=== PATIENT | male | born 1940 | race Caucasian/White ===

== ENCOUNTER → 2016-03-05 | Outpatient (CLI) | payer OTHER, BC ==
[~2016-03-05] MED LIST: ATV/1 PO; CHOL100010 PO; LISI-461 PO; LUPRON INH; MELO7.5T5 PO; MULT-506 PO; OXYC-57 PO; PRT/40 PO; PSYL1POW4 PO; TAMS0.4C38 PO; TRAZ50TA35 PO
[2016-03-05 10:22] VITALS: BP 127/79; PULSE 72; TEMP 36.9; O2SAT 96
--- NOTE | 2016-03-05 12:03 | Radiation Oncology Follow-Up ---
Radiation Oncology Follow-Up Date of Visit Mar 05, 2016. Reason For Visit One-month follow-up and cancer survivorship care plan Radiation Completion Date Hormonal suppression;Seed implant 11/04/15;IMRT 02/02/16 Diagnosis (1) Prostate cancer Status: Acute Onset Date: 04/08/2015 Location: both lobes of the prostate Histology Subtype: adenocarcinoma Stage: ll (biopsy stage) Permanent Comment: Rising PSA, pretreatment PSA 4.580 Status post ultrasound-guided biopsies 04/08/2015 [place] 3+3 and 4+4 Biopsy stage T2c Prostate volume 65.42 Prostate density 0.07 Lupron 30 mg IM 05/15/2015 Lupron 30 mg IM 09/09/2015 Status post prostate seed implant 11/04/2015 46 seeds were placed dose to 8500 cGy Lupron 30 mg IM 01/06/2016 (last) Status post completion of IMRT 02/02/2016 received 4500 cGy Last Edited By: Makenzie Sumner on Mar 05, 2016 12:02 History of Present Illness Mr. Rodriguez is a 75-year-old male with a strong family history of prostate cancer. Patient's paternal grandfather was diagnosed with prostate cancer at an advanced age and at age 94 of old age. The patient's father was diagnosed with prostate cancer at age 70 and at age 79 from his lung cancer. Patient 's paternal cousin was diagnosed with prostate cancer treated with prostate seed implant and is alive and well at age 79. The patient has 3 sons age 50, 52 and 54 square are obviously increased risk for prostate cancer. The patient has been followed with annual screening prostate-specific antigens. On 2012 prostate-specific antigen was 3.40. On 01/24/2014 prostate-specific antigen was 2.85. On 03/11/2015 to prostate-specific antigen had increased to 4.58. Because of this increase in prostate-specific antigen the patient was sent for evaluation to Dr. Alexx Red on 03/17/2015.. His digital rectal exam revealed estimated prostate volume of 50 g but no palpable nodules or induration. He discussed with the patient the option of prostate biopsy and the patient agreed to proceed with this procedure. On 04/08/2015 Dr. Red performed ultrasound-guided biopsies. This included 2 biopsies each from the left and right base, left and right mid gland, left and right apex. One biopsy was taken from the left and right anterior gland. Therefore total of 14 samples were taken. The 2 biopsies from the left base were benign. 2 of 2 biopsies from the right base were positive for adenocarcinoma poorly differentiated, [place] grade 4+4 with foci of intraductal carcinoma. This tumor involved 70% and 95% of the core length respectively. Perineural invasion was identified but no lymphovascular invasion noted. One of 2 biopsies in the left mid gland were positive for adenocarcinoma moderately differentiated, [place] grade 3+3 involving 15% of the core length with no perineural or lymphovascular invasion. 2 of 2 biopsies from the right mid gland were positive for prostatic adenocarcinoma, poorly differentiated, [place] grade 4+4 with foci of intraductal carcinoma. The tumor involved 75% of each core length with no perineural or lymphovascular invasion identified. 2 of 2 biopsies in the left apex were positive for adenocarcinoma, moderately differentiated, [place] grade 3+3 involving 15% of the core lengths with no perineural or lymphovascular invasion identified. 22 biopsies from the right apex were positive for prostatic adenocarcinoma, poorly differentiated, [place] grade 4+4 with foci of intraductal carcinoma. The tumor involved 30% with core length with no perineural or lymphovascular invasion identified. The single biopsy of the left anterior gland was benign. The single biopsy from the right anterior gland was positive for prostatic adenocarcinoma, moderately differentiated, [place] grade 3+3 involving 5% of the core length with perineural invasion identified but no lymphovascular invasion noted. Therefore a total of 10 out of 14 biopsies were positive. 7 right gland and 3 from the left gland. 6 of the biopsies and [place] grade 4+4 and 4 the biopsies had [place] grade 3+3. Case: [id number]. The patient return to discuss these findings with Dr. Red on 04/22/2015. He discussed treatment options with this patient. He arranged for a staging CT scan and bone scan for 05/01/2015 with results pending. We were also asked to see the patient in referral for discussion of the role of radiation. All options of therapy were reviewed with the patient. Ultimate decision was to be treated with hormone suppression followed by a prostate seed implant and then IMRT. He prostate seed implant was performed 11/04/2015. 46 his were placed. His dose was 8500 cGy. He then underwent IMRT. This was completed . He received 4500 cGy. Interim History He has had steady improvement in his urinary symptoms over the past month. His AUA score today was 11. The score at the end of treatment was 17. He had been started on tamsulosin and that was increased to twice a day. He did not feel that taking this twice a day made a difference so he been back to 1 pill per day. He's been taking 1 pill daily. He does have a change in bowel habits since undergoing the prostate biopsy. He feels that the stool is smaller in caliber. He has a pressure feeling. He denies pain. There is been no rectal bleeding. He has no abdominal pain. He had his last Lupron injection 2015. Continues to have some hot flashes. He completed expanded prostate cancer index composite for clinical practice and gave a score of 0 of 12 urinary incontinence symptoms. He gave a score of 6 of 12 urinary irritation symptoms. He gave a score of 4 of 12 in bowel symptoms. He gave a score of 8 of 12 and sexual symptoms he gave a score of 3 of 12 and hormonal vitality symptoms. His total was 21 of 60. He currently does not have a follow-up appointment with Dr. Eduardo. Allergies Coded Allergies: Penicillins (Verified Allergy, Unknown, HIVES, FEET HURTS, 11/04/15) Onion (Verified Adverse Reaction, Unknown, INDIGESTION, 11/04/15) Home Medications Scheduled Cholecalciferol (Vitamin D), 2,000 INTER.UNIT PO QAM Lisinopril (Zestril), 10 MG PO QAM Meloxicam (Mobic), 7.5 MG PO QAM Multivitamin (Multivitamin), 1 TAB PO QAM Pantoprazole (Pantoprazole Sodium), 1 TAB PO DAILY Psyllium (Metamucil), 1 TBS PO DAILY Tamsulosin Hcl (Flomax), 0.4 MG PO QPM [Lupron], 1 DOSE INH [id number] Scheduled PRN Lorazepam (Ativan), 1 MG PO HS PRN for Sleep Oxycodone/Acetaminophen 5MG/325MG (Percocet 5MG/325MG), 1-2 TABLETS PO Q4H PRN for Pain Review of Systems Gastrointestinal: Symptoms: WNL GI Comments: Takes metamucil;3 BMs/day of smaller amounts since RT; Oral: Symptoms: No Problems Respiratory: Symptoms: WNL Urinary: Symptoms: Burning, Frequency Comments: Little to no burning in penis w/urination - improved; Skin: Symptoms: No Problems Physical Exam Vital Signs Date Time Temp Pulse Resp B/P Pulse Ox O2 Delivery O2 Flow Rate FiO2 03/05/16 10:22 36.9 72 12 127/79 96 Fatigue: None General Appearance: no apparent distress Eyes: normal inspection, EOMI ENT: normal ENT inspection, hearing grossly normal Respiratory/Chest: lungs clear, no respiratory distress, no accessory muscle use Cardiovascular: regular rate, rhythm, no gallop, no murmur Abdomen: non tender, soft Anal / Rectum: Normal sphincter tone. Prostate is centrally raised. There are no masses or tenderness. There is no rectal bleeding. Extremities: no pedal edema Neurologic/Psychiatric: no motor/sensory deficits, alert, normal mood/affect Skin: warm/dry Lymphatic: no adenopathy Laboratory Studies Test 12/16/15 08:55 03/05/16 11:06 Blood Urea Nitrogen 14 mg/dl (7-18) Creatinine 0.87 mg/dl (0.60-1.40) Estimated GFR () 96.5 Estimated GFR (Non- 83.2 BUN/Creatinine Ratio 16.3 (10-20) Assessment & Plan Plan: He is currently taking tamsulosin once daily. He had previously felt that twice a day did not make a difference. He would like to try again to see if this helps his urinary symptoms. He is going to take this twice a day as a trial for one week. If there is no difference in his urination he'll go back to once per day. We discussed the change in bowel habits. We reviewed that is likely due to the swelling that occurred beginning at the time of the biopsy and persisted throughout the radiation treatments. It is hoped this will steadily improve over time. If it continues to persist he'll need to be evaluated. I've asked him to see Dr. Eduardo in 3 months. The PSA was drawn today prior to examination. He'll be notified as to results. We asked him to return to our office in 6 months. Today we completed a cancer survivorship care plan. A copy the document was given to the patient. He was given a survivorship booklet. He will call our office if he has any questions or concerns in the interim. Total Time In Follow-Up I spent 20 minutes speaking to the patient and performed an examination. I spent 20 minutes reviewing information, preparing the survivorship booklet, and completing this note. Copy To Cong Fontaine D.O. Pulmonary; Tai Eduardo MD
== END | disposition home or self-care (01) ==
LOC: C.ONC 09:45
PROVIDERS: ATTEND Radiology Radiation Oncology
DX: Z08 Encounter for follow-up examination after completed treatment for malignant neoplasm (principal); Z92.3 Personal history of irradiation; Z85.46 Personal history of malignant neoplasm of prostate

== ENCOUNTER → 2016-09-02 | Outpatient (CLI) | payer OTHER, BC ==
[~2016-09-02] MED LIST changes: -OXYC-57 PO
[2016-09-02 13:57] VITALS: BP 117/75; PULSE 70; TEMP 36.9; O2SAT 93
--- NOTE | 2016-09-02 15:15 | Radiation Oncology Follow-Up ---
Radiation Oncology Follow-Up Date of Visit Sep 02, 2016. Reason For Visit 6 month follow-up Radiation Completion Date Seed Implant 11/04/15 & IMRT 01/30/16 Diagnosis (1) Prostate cancer Status: Acute Onset Date: 04/08/2015 Permanent Comment: Rising PSA, pretreatment PSA 4.580 Status post ultrasound-guided biopsies 04/08/2015 [place] 3+3 and 4+4 Biopsy stage T2c Prostate volume 65.42 Prostate density 0.07 Lupron 30 mg IM 05/15/2015 Lupron 30 mg IM 09/09/2015 Status post prostate seed implant 11/04/2015 46 seeds were placed dose to 8500 cGy Lupron 30 mg IM 01/06/2016 (last) Status post completion of IMRT 02/02/2016 received 4500 cGy Last Edited By: Makenzie Sumner on Mar 05, 2016 12:02 History of Present Illness Mr. Rodriguez is a 75-year-old male with a strong family history of prostate cancer. Patient's paternal grandfather was diagnosed with prostate cancer at an advanced age and at age 94 of old age. The patient's father was diagnosed with prostate cancer at age 70 and at age 79 from his lung cancer. Patient 's paternal cousin was diagnosed with prostate cancer treated with prostate seed implant and is alive and well at age 79. The patient has 3 sons age 50, 52 and 54 square are obviously increased risk for prostate cancer. The patient has been followed with annual screening prostate-specific antigens. On 2012 prostate-specific antigen was 3.40. On 01/24/2014 prostate-specific antigen was 2.85. On 03/11/2015 to prostate-specific antigen had increased to 4.58. Because of this increase in prostate-specific antigen the patient was sent for evaluation to Dr. Alexx Red on 03/17/2015.. His digital rectal exam revealed estimated prostate volume of 50 g but no palpable nodules or induration. He discussed with the patient the option of prostate biopsy and the patient agreed to proceed with this procedure. On 04/08/2015 Dr. Red performed ultrasound-guided biopsies. This included 2 biopsies each from the left and right base, left and right mid gland, left and right apex. One biopsy was taken from the left and right anterior gland. Therefore total of 14 samples were taken. The 2 biopsies from the left base were benign. 2 of 2 biopsies from the right base were positive for adenocarcinoma poorly differentiated, [place] grade 4+4 with foci of intraductal carcinoma. This tumor involved 70% and 95% of the core length respectively. Perineural invasion was identified but no lymphovascular invasion noted. One of 2 biopsies in the left mid gland were positive for adenocarcinoma moderately differentiated, [place] grade 3+3 involving 15% of the core length with no perineural or lymphovascular invasion. 2 of 2 biopsies from the right mid gland were positive for prostatic adenocarcinoma, poorly differentiated, [place] grade 4+4 with foci of intraductal carcinoma. The tumor involved 75% of each core length with no perineural or lymphovascular invasion identified. 2 of 2 biopsies in the left apex were positive for adenocarcinoma, moderately differentiated, [place] grade 3+3 involving 15% of the core lengths with no perineural or lymphovascular invasion identified. 22 biopsies from the right apex were positive for prostatic adenocarcinoma, poorly differentiated, [place] grade 4+4 with foci of intraductal carcinoma. The tumor involved 30% with core length with no perineural or lymphovascular invasion identified. The single biopsy of the left anterior gland was benign. The single biopsy from the right anterior gland was positive for prostatic adenocarcinoma, moderately differentiated, [place] grade 3+3 involving 5% of the core length with perineural invasion identified but no lymphovascular invasion noted. Therefore a total of 10 out of 14 biopsies were positive. 7 right gland and 3 from the left gland. 6 of the biopsies and [place] grade 4+4 and 4 the biopsies had [place] grade 3+3. Case: [id number]. The patient return to discuss these findings with Dr. Red on 04/22/2015. He discussed treatment options with this patient. He arranged for a staging CT scan and bone scan for 05/01/2015 with results pending. We were also asked to see the patient in referral for discussion of the role of radiation. All options of therapy were reviewed with the patient. Ultimate decision was to be treated with hormone suppression followed by a prostate seed implant and then IMRT. He prostate seed implant was performed 11/04/2015. 46 his were placed. His dose was 8500 cGy. He then underwent IMRT. This was completed . He received 4500 cGy. Interim History He is been doing well over the past 6 months. His AUA score has improved and today is at 4. At his last visit this score was 11. He continues on the tamsulosin once daily. The hormone suppression was completed with the last injection being ovarian 2015. He states he does still continue to have some hot flashes. This is worse during the summer season with high temperatures and humidity. He completed expanded prostate cancer index composite for clinical practice and gave a score of 0 of 12 and urinary incontinence symptoms. He gave a score of 2 of 12 and urinary irritation symptoms. He gave a score of 3 of 12 bowel symptoms. He gave a score of 8 of 12 and sexual symptoms. He gave a score of 5 of 12 in hormonal vitality symptoms. His total was 18 of 60. Allergies Coded Allergies: Penicillins (Verified Allergy, Unknown, HIVES, FEET HURTS, 11/04/15) Onion (Verified Adverse Reaction, Unknown, INDIGESTION, 11/04/15) Home Medications Scheduled Cholecalciferol (Vitamin D), 2,000 INTER.UNIT PO QAM Lisinopril (Zestril), 10 MG PO QAM Meloxicam (Mobic), 7.5 MG PO QAM Multivitamin (Multivitamin), 1 TAB PO QAM Pantoprazole (Pantoprazole Sodium), 1 TAB PO DAILY Psyllium (Metamucil), 1 TBS PO Q2D Tamsulosin Hcl (Flomax), 0.4 MG PO QPM Scheduled PRN Trazodone Hcl (Trazodone), 25 MG PO HS PRN for Sleep Review of Systems Gastrointestinal: Symptoms: WNL GI Comments: Takes metamucil;3 BMs/day of smaller amounts since RT; Oral: Symptoms: No Problems Respiratory: Symptoms: WNL Urinary: Symptoms: WNL Comments: See AUA & EPIC Skin: Symptoms: No Problems Physical Exam Vital Signs Date Time Temp Pulse Resp B/P (MAP) Pulse Ox O2 Delivery O2 Flow Rate FiO2 09/02/16 13:57 36.9 70 16 117/75 93 Fatigue: None General Appearance: no apparent distress Eyes: normal inspection, EOMI ENT: normal ENT inspection, hearing grossly normal Neck: no adenopathy, thyroid normal Respiratory/Chest: lungs clear, no respiratory distress, no accessory muscle use Cardiovascular: regular rate, rhythm, no gallop, no murmur Abdomen: non tender, soft Anal / Rectum: Declined rectal exam Extremities: no pedal edema Neurologic/Psychiatric: no motor/sensory deficits, alert, normal mood/affect Skin: warm/dry Lymphatic: no adenopathy Laboratory Studies Test 09/02/16 14:27 Prostate Specific Antigen < 0.010 ng/ml (0.000-4.000) Assessment & Plan Plan: The PSA was drawn today the patient will be notified as to results. He continues regular follow-up with Dr. Eduardo. He'll be seeing him in 6 months. We asked him to return to our office in 1 year. We also discussed evaluation with a DEXA scan because of the hormonal suppression. He declined to have a DEXA scan. We discussed using vitamin E for the hot flashes. He a call our office if he has any questions or concerns in the interim. Total Time In Follow-Up I spent 20 minutes speaking to the patient and performing examination. I spent 15 minutes reviewing information and completing this note. Copy To Cong Fontaine, Charisma.O.Int.Med.; Tai Eduardo MD
== END | disposition home or self-care (01) ==
LOC: C.ONC 13:14
PROVIDERS: ATTEND Physician Assistant Medical
DX: Z08 Encounter for follow-up examination after completed treatment for malignant neoplasm (principal); Z92.3 Personal history of irradiation; Z85.46 Personal history of malignant neoplasm of prostate

== ENCOUNTER → 2016-11-29 | Outpatient (CLI) | payer OTHER, BC ==
[~2016-11-29] MED LIST changes: -ATV/1 PO; -LUPRON INH
[2016-11-29 12:34] LABS: BASO % 0.5 %; BASO ABS # 0.02 K/uL (0-0.2); COMPLETE YES; EOS % 4.4 %; HEMATOCRIT 45.9 % (42-52); LYMPH % 13.3 %; LYMPH ABS # 0.54 K/uL (1.2-3.4); MEAN CELL VOLUME 90.2 fL (80-100); MEAN CORPUSCULAR HEMOGLOBIN 30.8 pg (25-34); MEAN CORPUSCULAR HGB CONC 34.2 g/dl (32-36); MEAN PLATELET VOLUME 11.1 fL (7.4-10.4); MONO % 16.3 %; NEUT % 65.5 %; PLATELET COUNT 179 K/uL (130-400); RED BLOOD COUNT 5.09 M/uL (4.7-6.1); WHITE BLOOD COUNT 4.06 K/uL (4.8-10.8)
[2016-11-29 13:27] LABS: ESTIMATED AVERAGE GLUCOSE 114 mg/dl; HA1C FLAG Normal (Normal)
[2016-11-29 13:44] LABS: BLOOD UREA NITROGEN 18 mg/dl (7-18); BUN/CREATININE RATIO 19.4 (10-20); CALCIUM 9.3 mg/dl (8.5-10.1); CARBON DIOXIDE 25 mmol/L (21-32); CHLORIDE 109 mmol/L (98-107); CREATININE 0.91 mg/dl (0.60-1.40); GLUCOSE 102 mg/dl (70-99); SODIUM 142 mmol/L (136-145)
[2016-11-29 13:58] LABS: ALB/GLOB RATIO 1.2 (0.9-2); ALKALINE PHOSPHATASE 77 U/L (45-117); ALT/SGPT 20 U/L (12-78); AST/SGOT 19 U/L (15-37); CHOLESTEROL 191 mg/dl (0-200); CHOLESTEROL/HDL RATIO 4.7; HDL CHOLESTEROL 41 mg/dl; LDL CHOLESTEROL CALCULATED 119 mg/dl; PROSTATE SPECIFIC ANTIGEN 0.033 ng/ml (0.000-4.000); TRIGLYCERIDES 153 mg/dl (0-150); VERY LOW DENSITY LIPOPROT CALC 31 mg/dl
== END | disposition home or self-care (01) ==
LOC: C.LABPBG 08:38
PROVIDERS: ATTEND Internal Medicine
DX: I10 Essential (primary) hypertension (principal); E78.5 Hyperlipidemia, unspecified; G47.00 Insomnia, unspecified; K21.0 Gastro-esophageal reflux disease with esophagitis; C61 Malignant neoplasm of prostate; K22.2 Esophageal obstruction; R73.9 Hyperglycemia, unspecified

== ENCOUNTER → 2017-01-21 | Outpatient (CLI) | payer OTHER, BC ==
[~2017-01-21] MED LIST changes: +PANT40TA2 PO; -PRT/40 PO
== END | disposition home or self-care (01) ==
LOC: C.LABPBG 14:13
PROVIDERS: ATTEND Internal Medicine
DX: E03.9 Hypothyroidism, unspecified (principal)

== ENCOUNTER → 2017-05-30 | Outpatient (CLI) | payer OTHER, BC | END | disposition home or self-care (01) | LOC: C.LABPBG 09:45 | PROVIDERS: ATTEND Internal Medicine | DX: C61 Malignant neoplasm of prostate (principal) ==